=== PATIENT | male | born 1975 | race Caucasian/White ===

== ENCOUNTER 2016-07-28 00:53 | Emergency (ER) | payer MEDICAID, BC ==
[~2016-07-28] VITALS: Ht 182.9 cm; Wt 101.6 kg
[~2016-07-28 00:53] MED LIST: COLACE100 MG PO; GLUCOPHAGE500 MG PO; IBUPROFEN800 MG PO; LANTUS INS100 UNITS/ SUBQ; LEVAQUIN500 MG PO; METFORMIN HCL1000 MG PO; NORCO 10/325 MG1 TAB PO; PERCOCET 5/3251 TAB PO; VANCOCIN 11000 MG/20 IV
--- NOTE | 2016-07-28 00:53 | NUR ---
BIBA BLS TO ER BED 4
--- NOTE | 2016-07-28 00:53 | NUR ---
Keron turpin in ED - 07/28/16 at 0107 by MEDDM JULESA BLS TO ER BED 5
[2016-07-28 01:03] VITALS: BP 134/76
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
[2016-07-28] MEDS ORDERED: BACITRACIN OINT 500 UNITS/GM PKT TP ONE (01:25)
[2016-07-28] MEDS ORDERED: KETOROLAC 30 MG/ML VIAL IVP ONE (01:25)
[2016-07-28] MEDS ORDERED: fentaNYL 0.05 MG/ML VIAL IVP ONE (01:25)
--- NOTE | 2016-07-28 01:48 | NUR ---
PT TO CT VIA STEPHANIE IN STABLE CONDITION
--- NOTE | 2016-07-28 02:32 | NUR ---
PT RETURNED FROM CT IN STABLE CONDITION
--- NOTE | 2016-07-28 03:13 | NUR ---
PT ASLEEP AT THIS TIME
[2016-07-28] MEDS ORDERED: HYDROcodone/APAP 5/325 MG 1 TAB TAB PO ONE (03:40)
--- NOTE | 2016-07-28 03:49 | NUR ---
Patient discharged with v/s stable. Written and verbal after care instructions given and explained. Patient alert, oriented and verbalized understanding of instructions. Ambulatory with steady gait. All questions addressed prior to discharge. ID band removed. Patient advised to follow up with PMD. Rx of TYLENOL WITH CODEINE AND NAPROSYN given. Patient educated on indication of medication including possible reaction and side effects. Opportunity to ask questions provided and answered.
[2016-07-28 03:51] VITALS: BP 126/75
--- NOTE | 2016-07-28 03:51 | NUR ---
PT MADE AWARE THAT RENETTA RUIZ CALLED AND STATED THAT IF HE WANTED TO MAKE A REPORT HE WAS TO GO THE POLICE DEPARTMENT AND FILE A REPORT.
== END 2016-07-28 03:51 | disposition home or self-care (01) ==
LOC: MED 00:53
DX: S02.2XXA Fracture of nasal bones, initial encounter for closed fracture (principal); M25.511 Pain in right shoulder; E11.9 Type 2 diabetes mellitus without complications; I10 Essential (primary) hypertension; Z79.899 Other long term (current) drug therapy; Z79.4 Long term (current) use of insulin; Y08.89XA Assault by other specified means, initial encounter; Y93.89 Activity, other specified; Y92.89 Other specified places as the place of occurrence of the external cause; Y99.8 Other external cause status
CPT/HCPCS: 70450; 70486; 72125; 73030; 96374; 96375; 99284; J1885; J3010

== ENCOUNTER 2017-02-21 15:57 | Inpatient (IN) | payer BC, MEDICAID ==
[~2017-02-21] VITALS: Ht 185.4 cm; Wt 121.3 kg
[2017-02-21 16:12] VITALS: BP 134/85
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
[2017-02-21] MEDS ORDERED: KETOROLAC 60 MG/2 ML VIAL IM ONE (18:10)
--- NOTE | 2017-02-21 19:15 | NUR ---
Patient being evaluated by physician at bedside.
[2017-02-21] MEDS ORDERED: AMPICILLIN/SULBACTAM 3 GM in NACL 0.9% 100 ML IV ONE (19:20)
[2017-02-21] MEDS ORDERED: NEURONTIN400 MG PO (19:28)
--- NOTE | 2017-02-21 19:28 | NUR ---
REPORT GIVEN TO RN CLARIZE
--- NOTE | 2017-02-21 19:30 | NUR ---
RECEIVE REPORT FROM SOURAV NICHOLS. AAOX4, NO SIGNS OF DISTRESS.
[2017-02-21] MEDS ORDERED: JANUMET 50-1,01 EACH PO (19:33)
[2017-02-21] MEDS ORDERED: MICRONASE5 MG PO (19:33)
[2017-02-21] MEDS ORDERED: LIPITOR20 MG PO (19:33)
[2017-02-21] MEDS ORDERED: AMPICILLIN/SULBACTAM 3 GM VIAL ONE ×2 (19:51→23:10)
--- NOTE | 2017-02-21 20:30 | NUR ---
REPORT GIVEN TO MARTINA BENJAMIN.
[2017-02-21] MEDS ORDERED: INDOCIN25 MG PO (20:38)
[2017-02-21] MEDS ORDERED: HYDROcodone/APAP 10/325 MG 1 TAB TAB PO PRN (20:40)
[2017-02-21] MEDS ORDERED: ZESTRIL20 MG PO (20:41)
[2017-02-21] MEDS ORDERED: ONDANSETRON 4 MG/2 ML VIAL IVP PRN (20:45)
[2017-02-21] MEDS ORDERED: LORazepam 2 MG/ML VIAL IVP PRN (20:45)
[2017-02-21] MEDS ORDERED: ACETAMINOPHEN 325 MG TAB PO PRN (20:45)
[2017-02-21] MEDS ORDERED: DEXTROSE 50% 50 ML SYR IVP PRN (20:45)
[2017-02-21] MEDS ORDERED: METFORMIN HCL PO SCH (21:00)
[2017-02-21] MEDS ORDERED: SITAGLIPTIN PHOS PO SCH (21:00)
[2017-02-21] MEDS: DOCUSATE SODIUM 100 MG GELCAP PO SCH ×2 (21:00→21:35)
--- NOTE | 2017-02-21 21:05 | NUR ---
TRANSFERRED TO [facility] VIA WHEELCHAIR, NO SIGNS OF DISTRESS.
[2017-02-21 21:30] VITALS: BP 138/73
[2017-02-21] MEDS: ATORVASTATIN 20 MG TAB PO SCH (21:35)
--- NOTE | 2017-02-21 21:35 | NUR ---
PATIENT ADMITTED TO THE UNIT FROM ED. PATIENT BROUGHT VIA WHEELCHAIR, ABLE TO AMBULATE TO BED WITH MINIMAL ASSISTANCE. PATIENT IS AAOX4 ON ROOM AIR, NO SOB OR SIGN OF DISTRESS AT THIS TIME. IV TO LEFT HAND PATENT AND INTACT. SKIN WITH ERYTHEMA AND ECCHYMOSIS AND NON PITTING EDEMA TO RIGHT FOOT WITH BLISTERS INTACT. PATIENT STATES HE CANNOT FEEL HIS TOES BUT IS ABLE TO WIGGLE THEM. DENIES PAIN AT THIS TIME. ORIENTED PATIENT TO ROOM AND CALL LIGHT. DISCUSSED PLAN OF CARE WITH PATIENT. PATIENT VERBALIZED UNDERSTANDING, CALL LIGHT WITHIN REACH. WILL CONTINUE TO MONITOR.
[2017-02-21] MEDS: BLOOD GLUCOSE MONITORING 1 DEV DEV FS SCH (21:40)
--- NOTE | 2017-02-21 21:40 | NUR ---
PM MEDS GIVEN TOLERATED WELL.NO DISTRESS,NO C/O PAIN,BLOOD SUGAR 141 NO COVERAGE GIVEN,EATING SANDWICH TOLERATED WELL. CONT TO MONITOR.
[2017-02-21] MEDS ORDERED: PNEUMOCOCCAL VACCINE 23 MCG/0.5 ML VIAL IMVAC PRN (22:00)
[2017-02-21] MEDS: AMPICILLIN/SULBACTAM 3 GM in NACL 0.9% 100 ML IV SCH (23:11)
[2017-02-21] MEDS: MORPHINE SULFATE 2 MG/ML SYR IVP PRN (23:20)
[2017-02-22] VITALS: BP 145/87
--- NOTE | 2017-02-22 | NUR ---
PT WAS C/O PAIN ON RIGHT FOOT 8/10 MEDICATION GIVEN ORDERED TOLERATED WELL, PT WAS SLEEPING WELL AFTER 30 MINUTES PAIN MED GIVEN.NO S/S OF RESP DISTRESS,NO SOB. ABT IV GIVEN ORDERED.
--- NOTE | 2017-02-22 02:30 | NUR ---
PATIENT SLEEPING, NO SIGN OF DISTRESS, CALL LIGHT WITHIN REACH. WILL CONTINUE TO MONITOR
--- NOTE | 2017-02-22 04:00 | NUR ---
SLEEPING WELL,EASY TO AWAKE. DENIES PAIN AT THIS TIME. CALL LIGHT IN REACH.
[2017-02-22] MEDS ORDERED: AMPICILLIN/SULBACTAM 3 GM VIAL ONE (05:18)
[2017-02-22] MEDS: AMPICILLIN/SULBACTAM 3 GM in NACL 0.9% 100 ML IV SCH (05:21)
[2017-02-22] MEDS: BLOOD GLUCOSE MONITORING 1 DEV DEV FS SCH ×4 (06:26→20:19)
[2017-02-22] MEDS: INSULIN LISPRO SLIDING SCALE 100 UNITS/ML VIAL SUBQ PRN ×3 (06:29→17:37)
--- NOTE | 2017-02-22 07:15 | NUR ---
ENDORSED PATIENT TO DAY RN AT BEDSIDE, PATIENT IN STABLE CONDITION
--- NOTE | 2017-02-22 07:16 | NUR ---
RECEIVED REPORT, ASSUMED CARE. PT AWAKE AND VERBALLY RESPONSIVE. RESPIRATION EVEN AND UNLABORED,NO SOB, NO S/S OF RESPIRATORY DISTRESS. DENIES PAIN AT THIS TIME. SL TO LT HAND GAUGE 22 WITH NO S/S OF INFILTRATION. DISCUSSED PLAN OF CARE. WILL CONTINUE TO MONITOR.
[2017-02-22 08:00] VITALS: BP 142/78
[2017-02-22] MEDS ORDERED: metFORMIN 500 MG TAB PO SCH (09:00)
[2017-02-22] MEDS: DOCUSATE SODIUM 100 MG GELCAP PO SCH ×2 (09:46→20:20)
[2017-02-22] MEDS: GABAPENTIN 100 MG CAP PO SCH ×3 (09:46→17:07)
--- NOTE | 2017-02-22 09:46 | NUR ---
ALL AM MEDS GIVEN, TOLERATED WELL. NO ACUTE CHANGES OBSERVED. WILL CONTINUE TO MONITOR.
[2017-02-22] MEDS: INDOMETHACIN 25 MG CAP PO SCH ×3 (09:47→17:08)
[2017-02-22] MEDS: glyBURIDE 5 MG TAB PO SCH (09:47)
--- NOTE | 2017-02-22 10:16 | NUR ---
PATIENT HAS BEEN SCREENED AND CATEGORIZED MODERATE NUTRITION RISK. PATIENT WILL BE SEEN WITHIN 3-5 DAYS OF ADMISSION. 02/24/17 - 02/26/17 SKYE CORONADO MBA, RD
[2017-02-22] MEDS ORDERED: VANCOMYCIN PER PHARMACY MC PRN (10:30)
--- NOTE | 2017-02-22 12:00 | NUR ---
DRESSING CHANGED TO RT FOOT CELLULITIS. NOTED BRUISES SOME INTACT BLISTERS TO THE RT FOOT. SKIN TEARS TO RIGHT LATERAL PART OF THE RT FOOT. NO ACTIVE BLEEDING NOTED AT THIS TIME BUT NOTED MINIMAL SEROSANGUINEOUS TO MEDICAL ASPECT OF THE RT FOOT. SPECIMEN COLLECTED AND SENT TO LAB FOR AEROBIC AND ANAEROBIC CX. SECURED RT FOOT WITH DRY DRESSING. PT DENIES PAIN AT THIS TIME. WILL CONTINUE TO MONITOR. WILL START VANCO LATER ORDERED.
[2017-02-22] MEDS: PIPER/TAZO 3.375GM/D5W PREMIX 50 ML IV SCH ×2 (12:57→18:22)
[2017-02-22] MEDS: VANCOMYCIN 1,500 MG in DEXTROSE 5% 500 ML IV SCH ×2 (13:00→20:20)
[2017-02-22 16:58] VITALS: BP 124/54
[2017-02-22] MEDS: metFORMIN 500 MG TAB PO SCH (17:08)
--- NOTE | 2017-02-22 19:25 | NUR ---
PT AWAKE AND VERBALLY RESPONSIVE. DENIES PAIN, NO S/S OF RESPIRATORY DISTRESS AT THIS TIME. PT ABLE TO WIGGLE HIS TOES. AMBULATES TO RESTROOM. ALL NEEDS ANTICIPATED. ENDORSED TO NEXT SHIFT FOR CONTINUITY OF CARE. PT IN STABLE CONDITION.
--- NOTE | 2017-02-22 19:26 | NUR ---
RECEIVED REPORT FROM AM NURSE, PT AWAKE AND ALERT, AND ORIENTED X4. SPOUSE AT THE BEDSIDE. NO SIGNS OF ACUTE DISTRESS, ON ROOM AIR, IV ACCESS PATENT AND ASYMPTOMATIC. RIGHT FOOT WRAPPED WITH GAUZE. BOWEL AND BLADDER CONTINENCE. AMBULATORY WITH ASSISTIVE DEVICE, WALKER AT THE BEDSIDE NEEDED. PLAN OF CARE DISCUSSED, PT VERBALIZED UNDERSTANDING. BED ON LOW POSITION, BILATERAL HALF SIDE RAILS UP, CALL LIGHT WITHIN REACH, WILL CONTINUE TO MONITOR.
[2017-02-22 20:00] VITALS: BP 136/76
[2017-02-22] MEDS: ATORVASTATIN 20 MG TAB PO SCH (20:21)
[2017-02-22] MEDS: MORPHINE SULFATE 2 MG/ML SYR IVP PRN (20:38)
--- NOTE | 2017-02-22 22:45 | NUR ---
PT IS SLEEPING. SHOWING NO SIGNS OF ACUTE DISTRESS, BED ON LOW POSITION, BILATERAL HALF SIDE RAILS UP, CALL LIGHT WITHIN REACH, WILL CONTINUE TO MONITOR.
[2017-02-23] VITALS: BP 122/81
[2017-02-23] MEDS: PIPER/TAZO 3.375GM/D5W PREMIX 50 ML IV SCH ×4 (00:55→18:10)
--- NOTE | 2017-02-23 05:21 | NUR ---
DRESSING CHANGED TO RT FOOT CELLULITIS. NOTED PURPLE BRUISE AND SOME INTACT BLISTERS TO THE RT FOOT. SKIN TEARS TO RIGHT LATERAL PART OF THE RT FOOT. MINIMAL SEROSANGUINEOUS DRAINAGE NOTED. RINSED WITH NORMAL SALINE AND PAT DRY. SECURED RT FOOT WITH DRY DRESSING AND WRAPPED FOOT WITH GAUZE. PT DENIES PAIN AT THIS TIME. WILL CONTINUE TO MONITOR.
[2017-02-23] MEDS: VANCOMYCIN 1,500 MG in DEXTROSE 5% 500 ML IV SCH ×2 (05:32→16:14)
[2017-02-23] MEDS: BLOOD GLUCOSE MONITORING 1 DEV DEV FS SCH ×4 (06:53→20:18)
[2017-02-23] MEDS: INSULIN LISPRO SLIDING SCALE 100 UNITS/ML VIAL SUBQ PRN ×3 (06:55→18:09)
--- NOTE | 2017-02-23 07:30 | NUR ---
ENDORSED PT TO AM NURSE FOR CONTINUITY OF CARE. PT IS STABLE.
--- NOTE | 2017-02-23 07:30 | NUR ---
RECEIVED PT AT BEDSIDE, PT AWAKE, ALERT AND ORIENTED, PT SHOWED NO S/S OF DISTRESS. NO C/O PAIN AT THIS TIME. WOUND DRESSING ON THE RT FOOT NOTED, DRESSING IS CLEAN, DRY, AND INTACT. BED LOWERED, CALL LIGHT IN REACH. WILL CONTINUE TO MONITOR.
[2017-02-23 08:00] VITALS: BP 129/82
[2017-02-23] MEDS: DOCUSATE SODIUM 100 MG GELCAP PO SCH ×2 (08:22→20:13)
[2017-02-23] MEDS: INDOMETHACIN 25 MG CAP PO SCH ×3 (08:22→16:12)
[2017-02-23] MEDS: metFORMIN 500 MG TAB PO SCH ×2 (08:22→16:12)
[2017-02-23] MEDS: glyBURIDE 5 MG TAB PO SCH (08:22)
[2017-02-23] MEDS: GABAPENTIN 100 MG CAP PO SCH ×2 (10:57→13:49)
[2017-02-23] MEDS: NACL 0.45% 1,000 ML IV SCH (11:00)
[2017-02-23] MEDS: MORPHINE SULFATE 2 MG/ML SYR IVP PRN (12:21)
[2017-02-23 16:00] VITALS: BP 133/77
[2017-02-23] MEDS: GABAPENTIN 600 MG, GABAPENTIN 200 MG PO SCH (16:13)
--- NOTE | 2017-02-23 18:40 | NUR ---
WOUND DRESSING CHANGED. MULTIPLE BLISTERS, SWELLING AND DARK PURPLE DISCOLORATION ON THE RIGHT FOOT. MINIMAL SEROSANGUINEOUS DRAINAGE NOTED. WOUND CLEANSED W/ NS, COVERED WITH GAUZE AND WRAPPED WITH ROBERT. PT TOLERATED WELL.
--- NOTE | 2017-02-23 19:25 | NUR ---
ENDORSED PT TO PM NURSE FOR CONTINUITY OF CARE. PT IS IN STABLE CONDITION
--- NOTE | 2017-02-23 19:25 | NUR ---
RECEIVED REPORT FROM AM NURSE. PT SITTING UP IN BED, AWAKE, ALERT AND ORIENTED X4. NO SIGNS OF ACUTE DISTRESS NOTED. ON ROOM AIR. IV ACCESS IS ASYMPTOMATIC AND PATENT. BOWEL AND BLADDER CONTINENCE. PT DENIES PAIN. PT IS AMBULATORY WITH WALKER AT THE BEDSIDE. RIGHT FOOT IS WRAPPED WITH GAUZE. PLAN OF CARE DISCUSSED, PT VERBALIZED UNDERSTANDING. BED ON LOW POSITION, BILATERAL HALF SIDE RAILS UP, CALL LIGHT WITHIN REACH. WILL CONTINUE TO MONITOR.
[2017-02-23 20:00] VITALS: BP 125/69
[2017-02-23] MEDS: ATORVASTATIN 20 MG TAB PO SCH (20:13)
[2017-02-24] VITALS: BP 115/58
[2017-02-24] MEDS: PIPER/TAZO 3.375GM/D5W PREMIX 50 ML IV SCH ×4 (00:32→17:36)
[2017-02-24] MEDS: NACL 0.45% 1,000 ML IV SCH (00:32)
[2017-02-24] MEDS: MORPHINE SULFATE 2 MG/ML SYR IVP PRN ×5 (00:33→21:40)
--- NOTE | 2017-02-24 02:05 | NUR ---
PT IS SLEEPING, NO SIGNS OF ACUTE DISTRESS, BED ON LOW POSITION, BILATERAL HALF SIDE RAILS UP, CALL LIGHT WITHIN REACH, WILL CONTINUE TO MONITOR.
--- NOTE | 2017-02-24 04:06 | NUR ---
PT IS SLEEPING. NO SIGNS OF ACUTE DISTRESS, BED ON LOW POSITION, CALL LIGHT WITHIN REACH, BILATERAL HALF SIDE RAILS UP, WILL CONTINUE TO MONITOR.
--- NOTE | 2017-02-24 05:40 | NUR ---
WOUND DRESSING CHANGED ON RIGHT FOOT. MULTIPLE INTACT BLISTERS, SWELLING AND DARK PURPLE DISCOLORATION NOTED. MINIMAL SEROSANGUINEOUS DRAINAGE NOTED. WOUND CLEANSED WITH NORMAL SALINE, PAT DRY. COVERED WITH GAUZE AND WRAPPED WITH ROBERT. PT TOLERATED WELL. WILL CONTINUE TO MONITOR.
[2017-02-24] MEDS: VANCOMYCIN 1,500 MG in DEXTROSE 5% 500 ML IV SCH (06:00)
[2017-02-24] MEDS: BLOOD GLUCOSE MONITORING 1 DEV DEV FS SCH ×4 (06:04→20:56)
[2017-02-24] MEDS: INSULIN LISPRO SLIDING SCALE 100 UNITS/ML VIAL SUBQ PRN (06:16)
--- NOTE | 2017-02-24 07:25 | NUR ---
ENDORSED PT TO AM NURSE FOR CONTINUITY OF CARE. PT IS STABLE.
--- NOTE | 2017-02-24 07:26 | NUR ---
PT AWAKE AND ALERT, NO SIGNS OF ACUTE DISTRESS. BOWEL SOUNDS ACTIVE IN ALL 4 QUADRANTS. SKIN INTACT WITH FLUID FILLED VESICLES AND ECCHYMOSIS ON RIGHT FOOT, COVERED WITH CLEAN DRESSING AND WRAPPED WITH KERLIX. IV PATENT AND ASYMPTOMATIC. AMBULATORY WITH BRP. PATIENT DENIES PAIN AT THIS TIME. RE-ORIENTED TO HOSPITAL AND TO UNIT, PT VERBALIZED UNDERSTANDING. BED IN LOW POSITION WITH BILATERAL HALF SIDE RAILS UP, CALL LIGHT WITHIN REACH. WILL CONTINUE TO MONITOR.
[2017-02-24 08:00] VITALS: BP 138/69
[2017-02-24] MEDS: glyBURIDE 5 MG TAB PO SCH (08:30)
[2017-02-24] MEDS: metFORMIN 500 MG TAB PO SCH ×2 (08:30→17:38)
[2017-02-24] MEDS: DOCUSATE SODIUM 100 MG GELCAP PO SCH ×2 (08:30→21:33)
[2017-02-24] MEDS: INDOMETHACIN 25 MG CAP PO SCH ×3 (08:30→17:38)
[2017-02-24] MEDS: GABAPENTIN 600 MG, GABAPENTIN 200 MG PO SCH ×3 (08:31→17:38)
--- NOTE | 2017-02-24 09:00 | NUR ---
PT SLEEPING, NO SIGNS OF ACUTE DISTRESS. WILL CONTINUE TO MONITOR.
--- NOTE | 2017-02-24 10:25 | NUR ---
PHYSICAL THERAPY HERE FOR PATIENT, ADMINISTERED PAIN MEDICATION PATIENT COMPLAINED OF PAIN 10/10 IN RIGHT SHOULDER. WILL CONTINUE TO MONITOR.
--- NOTE | 2017-02-24 13:33 | NUR ---
DR VELEZ AT PATIENT BEDSIDE. RECEIVED NEW ORDERS, NOTED, WILL CARRY OUT.
--- NOTE | 2017-02-24 14:15 | NUR ---
CHANGED PATIENT DRESSING ON RIGHT FOOT. BLISTER INTACT ON ANTERIOR FOOT. CLEANSED AREA WITH NS, APPLIED GAUZE AND WRAPPED WITH KERLIX. MINIMAL SEROSANGUINOUS DRAINAGE, WILL CONTINUE TO MONITOR.
--- NOTE | 2017-02-24 15:45 | NUR ---
PHYSICAL THERAPY CO-SIGN The Physical Therapy Progress Notes documented by Supervisor Extruding Department have been reviewed. I CONCUR W/CAR SALES ASSOCIATE NOTE; CONT PER TX PLAN Reviewed/Co-Signed by: Joyce Joseph PT Documentation Done by: RAFAEL CAVANAUGH CAR SALES ASSOCIATE Addendum: 02/24/17 at 1545 by Joyce Joseph PT Amended: Links added.
[2017-02-24 16:00] VITALS: BP 146/85
--- NOTE | 2017-02-24 16:00 | NUR ---
PT RESTING COMFORTABLY IN BED, NO SIGNS OF ACUTE DISTRESS. WILL CONTINUE TO MONITOR.
--- NOTE | 2017-02-24 17:15 | NUR ---
PT BLOOD SUGAR IS 78, GAVE ORANGE JUICE. WILL CONTINUE TO MONITOR.
--- NOTE | 2017-02-24 17:57 | NUR ---
PT EATING DINNER IN BED, NO SIGNS OF ACUTE DISTRESS. WILL CONTINUE TO MONITOR.
--- NOTE | 2017-02-24 19:10 | NUR ---
PT AWAKE AND ALERT, NO SIGNS OF ACUTE DISTRESS. ENDORSED TO BRAIDING MACHINE OPERATOR NURSE FOR CONTINUITY OF CARE.
--- NOTE | 2017-02-24 19:15 | NUR ---
RECEIVED REPORT FROM DAY RN, PATIENT RESTING IN BED, AWAKE ALERT ORIENTED X4. NO S/S OF ACUTE DISTRESS NOTED, RESPIRATION EVEN AND UNLABORED. IV INTACT AND PATENT, INFUSING 1/5 NS AT 50ML/HR. DRESSING ON RT FOOT, DRY AND INTACT. PLAN OF CARE DISCUSSED, VERBALIZED UNDERSTANDING. CALL LIGHT WITHIN REACH, SAFETY MEASURE ENSURED. WILL CONTINUE TO MONITOR.
[2017-02-24] MEDS: ATORVASTATIN 20 MG TAB PO SCH (21:33)
--- NOTE | 2017-02-24 22:10 | NUR ---
PT SLEEPING AT THIS TIME. NO S/S OF ACUTE DISTRESS NOTED ,RESPIRATION EVEN AND UNLABORED, WILL CONTINUE TO MONITOR.
[2017-02-25] VITALS: BP 130/75
[2017-02-25] MEDS: PIPER/TAZO 3.375GM/D5W PREMIX 50 ML IV SCH ×3 (00:11→12:15)
--- NOTE | 2017-02-25 00:17 | NUR ---
ZOSYN STARTED, PATIENT TOLERATED WELL. NO S/S OF ACUTE DISTRESS NOTED, RESPIRATION EVEN AND UNLABORED, WILL CONTINUE TO MONITOR.
[2017-02-25] MEDS: NACL 0.45% 1,000 ML IV SCH (00:20)
--- NOTE | 2017-02-25 02:43 | NUR ---
PATIENT ASLEEP IN BED, NO S/S OF ACUTE DISTRESS NOTED, RESPIRATION EVEN AND UNLABORED, CALL LIGHT WITHIN REACH, SAFETY MEASURE ENSURED, WILL CONTINUE TO MONITOR.
--- NOTE | 2017-02-25 04:10 | NUR ---
NO CHANGE IN CONDITION, RESPIRATION EVEN AND UNLABORED, NO S/S OF ACUTE DISTRESS NOTED, WILL CONTINUE TO MONITOR.
[2017-02-25] MEDS: MORPHINE SULFATE 2 MG/ML SYR IVP PRN ×2 (05:17→09:22)
--- NOTE | 2017-02-25 05:20 | NUR ---
PATIENT STATED RT FOOT PAIN 9/10, PAIN MEDICATION GIVEN ORDERED, WILL CONTINUE TO MONITOR.
[2017-02-25] MEDS: BLOOD GLUCOSE MONITORING 1 DEV DEV FS SCH ×2 (06:39→11:43)
--- NOTE | 2017-02-25 06:46 | NUR ---
PATIENT IS SLEEPING AT THIS TIME. NO S/S OF ACUTE DISTRESS NOTED, RESPIRATION EVEN AND UNLABORED. CALL LIGHT WITHIN REACH, SAFETY MEASURE ENSURED, WILL CONTINUE TO MONITOR.
--- NOTE | 2017-02-25 07:19 | NUR ---
ENDORSED PLAN OF CARE TO DAY RN. PATIENT IS IN STABLE CONDITION, NO S/S OF ACUTE DISTRESS, RESPIRATION EVEN AND UNLABORED.
--- NOTE | 2017-02-25 07:22 | NUR ---
RECEIVED PT REPORT AT BEDSIDE FROM NIGHT NURSE. PT IS AAOX4 AND SHOWS NO S/S OF ACUTE DISTRESS ON ROOM AIR. PT C/O RT FOOT PAIN 01/02 . PT HAS NOTED RT FOOT DRX CLEAN DRY AND INTACT. IV NOTED ON THE R H WITH IVF'S INFUSING WELL. ON MS. PT WAS EXPLAINED POC FOR TODAY AND VERBALIZED UNDERSTANDING. BED IS IN LOW POSITION WITH CALL LIGHT WITHIN REACH. WILL CONTINUE TO MONITOR.
--- NOTE | 2017-02-25 07:57 | NUR ---
PAGE DR VELEZ REGARDING PT MAGNESIUM OF 1.4.WILL AWAIT FOR CALL BACK.
[2017-02-25 08:00] VITALS: BP 150/92
[2017-02-25] MEDS ORDERED: MAG SULF 2000 MG/WATER PREMIX 50 ML IV SCH (08:30)
[2017-02-25] MEDS ORDERED: VANCOMYCIN 1GM/DEXT 5% PREMIX 200 ML IV SCH (09:00)
--- NOTE | 2017-02-25 09:09 | NUR ---
PT BEING SEEN BY JEANNE WOUND CARE NURSE.
[2017-02-25] MEDS: metFORMIN 500 MG TAB PO SCH (09:14)
[2017-02-25] MEDS: glyBURIDE 5 MG TAB PO SCH (09:15)
[2017-02-25] MEDS: INDOMETHACIN 25 MG CAP PO SCH ×2 (09:17→12:15)
[2017-02-25] MEDS: DOCUSATE SODIUM 100 MG GELCAP PO SCH (09:17)
[2017-02-25] MEDS: GABAPENTIN 600 MG, GABAPENTIN 200 MG PO SCH ×2 (09:18→12:15)
--- NOTE | 2017-02-25 10:10 | NUR ---
PT IS SLEEPING AND SHOWS NO S/S OF ACUTE DISTRESS ON ROOM AIR. WILL CONTINUE TO MONITOR.
--- NOTE | 2017-02-25 10:32 | NUR ---
02/25/17 RD INITIAL ASSESSMENT COMPLETED PLEASE REFER TO NUTRITION ASSESSMENT UNDER CARE ACTIVITY FOR ESTIMATED NUTRITIONAL NEEDS. 1. CONTINUE CARDIAC, 60G CONSISTENT CARBOHDYRATE DIET 2. ADD SNACKS BID (TO BETTER MEET NUTRIENT NEEDS) 3. RD TO FOLLOW-UP 7 DAYS, LOW RISK GLENYS HE, ALPHONSE
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
--- NOTE | 2017-02-25 11:58 | NUR ---
FAXED CONCURRENT REVIEW TO [facility] [phone] PHONE LIZA [phone]
--- NOTE | 2017-02-25 12:15 | NUR ---
ADMINISTERED SCHEDULED MEDICATIONS. PT TOLERATED WELL. PT'S NEEDS MET AT THIS TIME. PT DENIES PAIN AND SOB. WILL CONTINUE TO MONITOR.
[2017-02-25] MEDS: INSULIN LISPRO SLIDING SCALE 100 UNITS/ML VIAL SUBQ PRN (12:17)
[2017-02-25] MEDS ORDERED: NACL 0.9% IRR 250 ML BOTTLE IR SCH (13:00)
--- NOTE | 2017-02-25 13:05 | NUR ---
PT SEEN BY DR VELEZ AND OKAYED TO BE DISCHARGED.
[2017-02-25] MEDS ORDERED: MAG SULF 2000 MG/WATER PREMIX 50 ML IV ONE (13:10)
[2017-02-25] MEDS ORDERED: MICRONASE5 M1 PO (13:13)
[2017-02-25] MEDS ORDERED: ATORVASTATIN CA20 MG PO (13:13)
--- NOTE | 2017-02-25 15:00 | NUR ---
PT HAS BEEN DISCHARGE. ALL DISCHARGE INSTRUCTIONS AND PRESCRIPTIONS GIVEN. ALL PAPERWORK SIGNED. ALL QUESTIONS ANSWERED. PT IS AWARE TO CALL DR VELEZ'S OFFICE NUMBER WHILE AT PHARMACY TO RECEIVE ABX ORDER. ALL BELONGINGS AND PRESCRIPTIONS IN PT POSSESSION. IV DISCONTINUED WITH CANNULA INTACT. WRISTBANDS REMOVED. PT REFUSED WHEELCHAIR AND AMB OFF UNIT IN STABLE CONDITION WITH FAMILY PRESENT AT SIDE.
--- NOTE | 2017-02-25 15:23 | NUR ---
PHYSICAL THERAPY CO-SIGN The Physical Therapy Progress Notes documented by Adolescent Coordinator have been reviewed. Reviewed/Co-Signed by: Chen Porter PT Documentation Done by:RAFAEL CAVANAUGH CORPORATE COMPLIANCE OFFICER PROGRESSED W/ GAIT ENDURANCE, FUNC MOBILITY. Addendum: 02/25/17 at 1524 by Chen Porter PT Amended: Links added.
== END 2017-02-25 15:00 | disposition home or self-care (01) | DRG 351 ==
LOC: MED 15:57 → MTU 20:46
PROVIDERS: ADMIT Preventive Medicine Preventive Medicine/Occupational Environmental Medicine; ATTEND Preventive Medicine Preventive Medicine/Occupational Environmental Medicine
PROC: 3E0234Z Introduction of Serum, Toxoid and Vaccine into Muscle, Percutaneous Approach (ICD-10-PCS; principal; 2017-02-25)
DX: S97.81XA Crushing injury of right foot, initial encounter (principal); N17.9 Acute kidney failure, unspecified; E11.22 Type 2 diabetes mellitus with diabetic chronic kidney disease; E11.65 Type 2 diabetes mellitus with hyperglycemia; L03.115 Cellulitis of right lower limb; E83.42 Hypomagnesemia; N18.9 Chronic kidney disease, unspecified; I12.9 Hypertensive chronic kidney disease with stage 1 through stage 4 chronic kidney disease, or unspecified chronic kidney disease; R74.0 Nonspecific elevation of levels of transaminase and lactic acid dehydrogenase [LDH]; R79.89 Other specified abnormal findings of blood chemistry; E78.5 Hyperlipidemia, unspecified; Z23 Encounter for immunization; Y93.89 Activity, other specified; Y92.89 Other specified places as the place of occurrence of the external cause; Y99.8 Other external cause status; Z87.81 Personal history of (healed) traumatic fracture; V09.20XA Pedestrian injured in traffic accident involving unspecified motor vehicles, initial encounter

== ENCOUNTER 2020-01-31 17:14 | Emergency (ER) | payer MEDICAID, SELFPAY ==
[~2020-01-31] VITALS: Ht 182.9 cm; Wt 100.2 kg
[~2020-01-31 17:14] MED LIST changes: +ASPI-1822 PO; +ATOR20TA PO; -COLACE100 MG PO; -GLUCOPHAGE500 MG PO; -IBUPROFEN800 MG PO; +INSU100S22 SUBQ; +LACT10CA1 PO; -LANTUS INS100 UNITS/ SUBQ; -LEVAQUIN500 MG PO; +LISI-420 PO; +METF1000 PO; -METFORMIN HCL1000 MG PO; +METR500T1 PO; -NORCO 10/325 MG1 TAB PO; -PERCOCET 5/3251 TAB PO; +SULF-59 PO; -VANCOCIN 11000 MG/20 IV
[2020-01-31 17:20] VITALS: BP 164/102
--- NOTE | 2020-01-31 18:03 | NUR ---
PT AMBULATED TO BED 1.
--- NOTE | 2020-01-31 18:22 | NUR ---
44 YO MALE CO RIGHT FOOT DIABETIC WOUND. STATES INCREASED SWELLING AND PAIN. DENIES N/V, FEVER. ACCUCHECK 331 HX- DM, HTN NKA
[2020-01-31] MEDS ORDERED: KETOROLAC 60 MG/2 ML VIAL IM ONE (18:25)
[2020-01-31 19:37] VITALS: BP 155/89
--- NOTE | 2020-01-31 19:39 | NUR ---
Patient discharged with v/s stable. Written and verbal after care instructions given and explained. Patient alert, oriented and verbalized understanding of instructions. Ambulatory with steady gait. All questions addressed prior to discharge. ID band removed. Patient advised to follow up with PMD. Rx of NORCO AND BACTRIM DS given. Patient educated on indication of medication including possible reaction and side effects. Opportunity to ask questions provided and answered.
== END 2020-01-31 19:38 | disposition home or self-care (01) ==
LOC: MED 17:14
DX: E11.621 Type 2 diabetes mellitus with foot ulcer (principal); K21.9 Gastro-esophageal reflux disease without esophagitis; Z98.890 Other specified postprocedural states; Z79.4 Long term (current) use of insulin; Z79.899 Other long term (current) drug therapy; Z79.82 Long term (current) use of aspirin
CPT/HCPCS: 73630; 96372; 99283; J1885

== ENCOUNTER 2020-04-29 14:57 | Emergency (ER) | payer MEDICAID ==
[~2020-04-29] VITALS: Ht 182.9 cm; Wt 104.3 kg
[2020-04-29 15:00] VITALS: BP 141/92
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
--- NOTE | 2020-04-29 15:11 | NUR ---
PT IS BEING TAKEN TO XRAY VIA .
--- NOTE | 2020-04-29 15:25 | NUR ---
RETURNED FROM XRAY
[2020-04-29] MEDS ORDERED: NACL 0.9% 1,000 ML IV ONE (15:30)
[2020-04-29] MEDS ORDERED: KETOROLAC 30 MG/ML VIAL IVP ONE (16:05)
--- NOTE | 2020-04-29 16:11 | NUR ---
PATIENT TAKEN TO CHAIR C
[2020-04-29 17:04] VITALS: BP 135/91
--- NOTE | 2020-04-29 17:04 | NUR ---
Patient discharged with v/s stable. Written and verbal after care instructions given and explained. Patient alert, oriented and verbalized understanding of instructions. Ambulatory with steady gait. All questions addressed prior to discharge. ID band removed. Patient advised to follow up with PMD. Rx of Meformin and Motrin given. Patient educated on indication of medication including possible reaction and side effects. Opportunity to ask questions provided and answered.
--- NOTE | 2020-04-29 17:04 | NUR ---
BS 430. DR. RICH MADE AWARE.
== END 2020-04-29 17:04 | disposition home or self-care (01) ==
LOC: MED 14:57
DX: S20.212A Contusion of left front wall of thorax, initial encounter (principal); R31.9 Hematuria, unspecified; E11.65 Type 2 diabetes mellitus with hyperglycemia; K21.9 Gastro-esophageal reflux disease without esophagitis; F17.210 Nicotine dependence, cigarettes, uncomplicated; Z79.899 Other long term (current) drug therapy; Z98.890 Other specified postprocedural states; X58.XXXA Exposure to other specified factors, initial encounter; Y93.6A Activity, physical games generally associated with school recess, summer camp and children; Y92.89 Other specified places as the place of occurrence of the external cause; Y99.8 Other external cause status
CPT/HCPCS: 71101; 81002; 82948; 96361; 96374; 99284; J1885; J7030